=== PATIENT | female | born 1980 | race Caucasian/White ===

== ENCOUNTER 2023-02-23 08:00 | Outpatient (CLI) | payer MEDICAID ==
[2023-02-23 12:43] LABS: BILIRUBIN,URINE NEGATIVE (NEGATIVE); GLUCOSE, URINE (UA) NEGATIVE (NEGATIVE); KETONES,URINE (UA) NEGATIVE (NEGATIVE); LEUKOCYTE ESTERASE, URINE NEGATIVE (NEGATIVE); NITRITE,URINE NEGATIVE (NEGATIVE); OCCULT BLOOD,URINE NEGATIVE (NEGATIVE); PROTEIN,URINE NEGATIVE (NEGATIVE); UROBILINOGEN,URINE 0.2 (NORMAL) E.U./dL (NORMAL)
[2023-02-23 12:59] LABS: BACTERIA,URINE None Seen /HPF (None Seen); CLARITY,URINE CLEAR (CLEAR); RBC,URINE None Seen /HPF (0-5); SQUAMOUS EPITHELIAL CELL,UR FEW Squamous (<= Few); WBC CLUMPS,URINE NONE SEEN; WBC,URINE 0-3 /HPF (0-5)
[2023-02-23 13:00] LABS: AMORPHOUS SEDIMENT,UR Few /LPF; CRYSTALS,URINE 3-5 Calcium Oxalate /LPF
== END 2023-02-23 23:59 | disposition home or self-care (01) ==
LOC: LAB.WC 08:00
PROVIDERS: ATTEND Nurse Practitioner
DX: L29.8 Other pruritus (principal)
CPT/HCPCS: 81001; 81599; 87086; 87109

== ENCOUNTER 2023-03-16 08:00 | Outpatient (CLI) | payer MEDICAID ==
[2023-03-16 21:01] LABS: BACTERIAL VAGINOSIS DNA NEGATIVE (NEGATIVE); CANDIDA GLABRATA DNA NEGATIVE (NEGATIVE); CANDIDA GROUP DNA NEGATIVE (NEGATIVE); CANDIDA KRUSEI DNA NEGATIVE (NEGATIVE); TRICHOMONAS VAGINALIS DNA NEGATIVE (NEGATIVE)
== END 2023-03-16 23:59 | disposition home or self-care (01) ==
LOC: LAB.WC 08:00
PROVIDERS: ATTEND Nurse Practitioner
DX: L29.8 Other pruritus (principal)
CPT/HCPCS: 81514

== ENCOUNTER 2023-04-26 09:54 | Outpatient (CLI) | payer MEDICAID ==
[2023-04-26 10:19] LABS: ALBUMIN 4.4 g/dL (3.2-5.5); ALBUMIN/GLOBULIN RATIO 1.8 (1.0-2.2); BILIRUBIN,TOTAL 0.9 mg/dL (0.2-1.0); CALCIUM 9.7 mg/dL (8.5-10.3); CREATININE 0.6 mg/dL (0.6-1.3); POTASSIUM 4.1 mmol/L (3.5-4.5); TOTAL PROTEIN 6.8 g/dL (6.4-8.9)
== END 2023-04-26 09:55 | disposition home or self-care (01) ==
LOC: LAB 09:54
PROVIDERS: ATTEND Nurse Practitioner
DX: R53.83 Other fatigue (principal)
CPT/HCPCS: 36415; 80053

== ENCOUNTER 2023-05-12 10:31 | Outpatient (CLI) | payer MEDICAID ==
[2023-05-12] MEDS ORDERED: iohexoL-300 100 ML VIAL IVP ONE (12:58)
--- NOTE | 2023-05-12 19:35 | CT Report ---
PROCEDURE: MAXILLOFACIAL W INDICATIONS: DENTAL INFECTION CONTRAST: Omni 300 100ml TECHNIQUE: After the administration of intravenous contrast, 3.0 mm axial sections acquired from the mid-neck to the frontal sinuses, with coronal reformatting. For radiation dose reduction, the following was use d: automated exposure control, adjustment of mA and/or kV according to patient size. COMPARISON: None. FINDINGS: Image quality: Excellent. Soft tissues: No edema, masses, or fluid collections. No enlarged lymph nodes. Vascular: Visualized vascular structures appear patent throughout. Bony vascular foramina and canal s appear normal. Bones: Facial bones appear intact, without fractures, erosions, or destruction. Visualized portions of the skull base and auditory canals also appear normal. No significant dental caries or periapica l abscesses. Sinuses: Minimal mucosal thickening of the left maxillary sinus. IMPRESSION: No significant dental disease. No periapical lucency. Reviewed by: Tiago Middleton MD on 05/12/2023 7:33 PM PST Approved by: Tiago Middleton MD on 05/12/2023 7:33 PM PST Station ID: [id number]
== END 2023-05-12 10:32 | disposition home or self-care (01) ==
LOC: DI 10:31
PROVIDERS: ATTEND Internal Medicine
DX: K04.7 Periapical abscess without sinus (principal)
CPT/HCPCS: 70487; Q9967

== ENCOUNTER 2023-05-24 09:09 | Outpatient (CLI) | payer MEDICAID ==
--- NOTE | 2023-05-24 13:35 | XRAY Report ---
PROCEDURE: Lumbar Spine 2-3V INDICATIONS: LOW BACK PAIN, LEFT HIP PAIN TECHNIQUE: 2 views of the lumbar spine were acquired. COMPARISON: None. FINDINGS: Bones: 5 [id number] vertebrae are present. There is normal bony alignment. No vertebral body compression fractures. No suspicious bony lesions. Soft tissues: Overlying bowel gas pattern is normal. No suspicious soft tissue calcifications. IMPRESSION: Normal lumbar spine. Reviewed by: Anh Pate MD on 05/24/2023 1:34 PM PST Approved by: Anh Pate MD on 05/24/2023 1:34 PM PST Station ID: [id number]
--- NOTE | 2023-05-24 13:36 | XRAY Report ---
PROCEDURE: Pelvis 1-2V INDICATIONS: LOW BACK PAIN, LEFT HIP PAIN TECHNIQUE: 1 view(s) of the pelvis acquired. COMPARISON: None. FINDINGS: Bones: No fractures or dislocations. No suspicious bony lesions. Soft tissues: Visualized bowel gas pattern is normal. No suspicious soft tissue calcifications. IMPRESSION: No acute bony abnormality. Reviewed by: Anh Pate MD on 05/24/2023 1:35 PM PST Approved by: Anh Pate MD on 05/24/2023 1:35 PM PST Station ID: [id number]
== END 2023-05-24 09:10 | disposition home or self-care (01) ==
LOC: DI 09:09
PROVIDERS: ATTEND Nurse Practitioner
DX: M54.59 Other low back pain (principal); M25.552 Pain in left hip